=== PATIENT | male | born 1940 | race Caucasian/White ===

== ENCOUNTER 2023-12-27 14:13 | Inpatient (IN) ==
[2023-12-27] MEDS: FAMOTIDINE/PF 20 MG/2 ML VIAL IV ONE (14:30)
[2023-12-27] MEDS: methylPREDNISolone SOD SUCC 125 MG/2 ML VIAL IV ONE (14:30)
[2023-12-27] MEDS: IPRATROPIUM/ALBUTEROL 3 ML AMPUL.NEB NEB ONE ×2 (14:36→14:37)
[2023-12-27 14:42] LABS: Basophils # (Auto) 0.03 K/mcL (0.00-0.30); Basophils % (Auto) 0.3 % (0.0-2.0); Eosinophils # (Auto) 0.56 K/mcL (0.00-0.70); Hematocrit 41.3 % (40.1-51.0); Hemoglobin 13.4 g/dL (13.7-17.5); Lymphocytes # (Auto) 3.43 K/mcL (1.50-4.80); Lymphocytes % (Auto) 30.4 % (15.5-49.0); Mean Cell Volume 95.4 fL (80.0-100.0); Mean Corpuscular HGB Conc 32.4 g/dL (31.0-36.0); Mean Platelet Volume 9.2 fL (8.8-12.5); Monocytes # (Auto) 0.65 K/mcL (0.10-0.90); Monocytes % (Auto) 5.8 % (1.0-12.0); Neutrophils % (Auto) 58.3 % (38.0-78.0); Platelet Count 234 K/mcL (140-440); RBC 4.33 M/mcL (4.63-6.08); Red Cell Distribution Width 14.3 % (11.5-14.5); WBC 11.3 K/mcL (4.5-11.0)
[2023-12-27] MEDS: TRANEXAMIC ACID 1,000 MG/10 ML VIAL IV ONE (14:53)
[2023-12-27 15:04] LABS: ALT/SGPT 10 U/L (<40); AST/SGOT 31 U/L (<40); Albumin 4.4 gm/dL (3.2-5.2); Albumin/Globulin Ratio 1.6 (1.0-2.3); Alkaline Phosphatase 74 U/L (39-117); Bilirubin,Total 0.4 mg/dL (0.1-1.0); Blood Urea Nitrogen 20 mg/dL (8-23); Calcium 8.8 mg/dL (8.6-10.4); Carbon Dioxide 24 mmol/L (22-30); Chloride 104 mmol/L (96-108); Globulin 2.8 gm/dL (2.2-3.7); Glomerular Filtration Rate 86; Glucose 89 mg/dL (70-105); Sodium 138 mmol/L (133-145)
[2023-12-27] MEDS: RACEPINEPHRINE 0.5 ML AMPUL.NEB ONE (15:10)
[2023-12-27] MEDS: EPINEPHrine 1 MG/ML VIAL IM ONE (15:55)
[2023-12-27] MEDS: MIDAZOLAM 2 MG/2 ML VIAL IV ONE (15:56)
[2023-12-27] MEDS: KETAMINE 10 MG/ML ML IV ONE (15:56)
[2023-12-27] MEDS: 0.9 % SODIUM CHLORIDE 250 ML IV SCH ×2 (15:57→17:30)
[2023-12-27] MEDS ORDERED: KETAMINE 50 MG/ML Syringe IV ONE (16:03)
[2023-12-27] MEDS ORDERED: PROPOFOL 200 MG/20 ML VIAL IV ONE (16:03)
[2023-12-27] MEDS ORDERED: MIDAZOLAM 2 MG/2 ML VIAL ONE (16:04)
[2023-12-27] MEDS: PROPOFOL 1,000 MG in PREMIX 1 BAG IV SCH (16:46)
[2023-12-27] MEDS ORDERED: DEXTROSE 50% 50 ML SYRINGE IV PRN (16:47)
[2023-12-27] MEDS: DEXTROSE 5%-NS 1,000 ML IV SCH (16:49)
[2023-12-27] MEDS: fentaNYL 2,500 MCG in 0.9 % SODIUM CHLORIDE 200 ML IV SCH ×2 (17:24→19:58)
[2023-12-27] MEDS: PROPOFOL 100 ML IV ONE (17:24)
[2023-12-27] MEDS: NOREPINEPHRINE 250 ML IV SCH (17:31)
[2023-12-27] MEDS ORDERED: diphenhydrAMINE 50 MG/ML VIAL IV ONE (17:52)
[2023-12-27] MEDS: NICOTINE 21 MG PATCH TOPICAL SCH (18:00)
[2023-12-27] MEDS: SCOPOLAMINE 1 PATCH PATCH TOPICAL SCH (18:02)
[2023-12-27] MEDS: IPRATROPIUM/ALBUTEROL 3 ML AMPUL.NEB NEB SCH (19:15)
[2023-12-27] MEDS: methylPREDNISolone SOD SUCC 125 MG/2 ML VIAL IV SCH (19:34)
[2023-12-27] MEDS: INSULIN LISPRO 1 UNIT/0.01 ML UNIT SQ SCH (19:38)
[2023-12-27] MEDS: NOREPINEPHRINE BITARTRATE 8 MG in 0.9 % SODIUM CHLORIDE 242 ML IV SCH (19:58)
[2023-12-27] MEDS: FAMOTIDINE/PF 20 MG/2 ML VIAL IV SCH (20:07)
[2023-12-27] MEDS: CHLORHEXIDINE GLUCONATE 15 ML UDC SWABMOUTH SCH (20:07)
[2023-12-27] MEDS: 0.9 % SODIUM CHLORIDE 10 ML SYRINGE IV SCH (20:08)
[2023-12-28] MEDS: ONDANSETRON 4 MG/2 ML VIAL IV PRN (00:19)
[2023-12-28] MEDS: PROPOFOL 100 ML IV ONE ×3 (00:32→23:22)
[2023-12-28 07:14] LABS: Basophils # (Auto) 0.01 K/mcL (0.00-0.30); Basophils % (Auto) 0.2 % (0.0-2.0); Eosinophils # (Auto) 0 K/mcL (0.00-0.70); Eosinophils % (Auto) 0 % (0.0-7.0); Hematocrit 34.4 % (40.1-51.0); Hemoglobin 10.7 g/dL (13.7-17.5); Lymphocytes # (Auto) 0.95 K/mcL (1.50-4.80); Lymphocytes % (Auto) 16.6 % (15.5-49.0); Mean Cell Volume 100.9 fL (80.0-100.0); Mean Corpuscular HGB Conc 31.1 g/dL (31.0-36.0); Mean Platelet Volume 9.6 fL (8.8-12.5); Monocytes # (Auto) 0.03 K/mcL (0.10-0.90); Monocytes % (Auto) 0.5 % (1.0-12.0); Neutrophils % (Auto) 82.5 % (38.0-78.0); Platelet Count 189 K/mcL (140-440); RBC 3.41 M/mcL (4.63-6.08); Red Cell Distribution Width 14.2 % (11.5-14.5); WBC 5.7 K/mcL (4.5-11.0)
[2023-12-28 07:38] LABS: ALT/SGPT 7 U/L (<40); AST/SGOT 15 U/L (<40); Albumin 3.7 gm/dL (3.2-5.2); Albumin/Globulin Ratio 1.6 (1.0-2.3); Alkaline Phosphatase 60 U/L (39-117); Bilirubin,Total 0.2 mg/dL (0.1-1.0); Blood Urea Nitrogen 19 mg/dL (8-23); Calcium 8.4 mg/dL (8.6-10.4); Carbon Dioxide 17 mmol/L (22-30); Chloride 103 mmol/L (96-108); Globulin 2.3 gm/dL (2.2-3.7); Glomerular Filtration Rate 86; Glucose 188 mg/dL (70-105); Phosphorous 3.2 mg/dL (2.5-4.5); Potassium 3.8 mmol/L (3.3-5.1); Sodium 135 mmol/L (133-145)
[2023-12-28 09:13] LABS: ABG Methemoglobin 0.4 % (0.4-1.5); Total Hemoglobin 12.4 gm/Dl (13.5-16.5); VBG Base Excess -9 (-2-3); VBG HCO3 16.7 mmol/L (24.0-28.0); VBG Oxygen Saturation 87.1 % (40.0-70.0); VBG PCO2 34.9 mmHg (41.0-51.0); VBG PO2 62.1 mmHg (25.0-40.0); VBG Total CO2 17.8 mmol/L (25.0-29.0)
[2023-12-28] MEDS: ENOXAPARIN 40 MG/0.4 ML SYRINGE SQ SCH (09:18)
[2023-12-28] MEDS: diphenhydrAMINE 50 MG/ML VIAL IV PRN (09:19)
[2023-12-29] MEDS: PROPOFOL 100 ML IV ONE (04:08)
[2023-12-29 06:35] LABS: ALT/SGPT 6 U/L (<40); AST/SGOT 12 U/L (<40); Albumin 3.2 gm/dL (3.2-5.2); Albumin/Globulin Ratio 1.4 (1.0-2.3); Alkaline Phosphatase 53 U/L (39-117); Bilirubin,Total < 0.2 mg/dL (0.1-1.0); Blood Urea Nitrogen 20 mg/dL (8-23); Calcium 8.2 mg/dL (8.6-10.4); Carbon Dioxide 19 mmol/L (22-30); Chloride 109 mmol/L (96-108); Globulin 2.3 gm/dL (2.2-3.7); Glomerular Filtration Rate 91; Glucose 176 mg/dL (70-105); Potassium 3.8 mmol/L (3.3-5.1); Sodium 139 mmol/L (133-145)
[2023-12-29 06:36] LABS: Phosphorous 3.1 mg/dL (2.5-4.5)
[2023-12-29 06:39] LABS: Basophils # (Auto) 0 K/mcL (0.00-0.30); Basophils % (Auto) 0 % (0.0-2.0); Eosinophils # (Auto) 0 K/mcL (0.00-0.70); Eosinophils % (Auto) 0 % (0.0-7.0); Hematocrit 31.5 % (40.1-51.0); Hemoglobin 9.8 g/dL (13.7-17.5); Lymphocytes % (Auto) 6.7 % (15.5-49.0); Mean Cell Volume 99.7 fL (80.0-100.0); Mean Corpuscular HGB Conc 31.1 g/dL (31.0-36.0); Mean Platelet Volume 9.6 fL (8.8-12.5); Monocytes # (Auto) 0.38 K/mcL (0.10-0.90); Monocytes % (Auto) 3.2 % (1.0-12.0); Neutrophils % (Auto) 89.8 % (38.0-78.0); Platelet Count 203 K/mcL (140-440); RBC 3.16 M/mcL (4.63-6.08); Red Cell Distribution Width 14.8 % (11.5-14.5); WBC 11.9 K/mcL (4.5-11.0)
[2023-12-29] MEDS ORDERED: fentaNYL 2,500 MCG in 0.9 % SODIUM CHLORIDE 200 ML IV PRN (10:12)
[2023-12-29] MEDS: HYDROcodone/APAP 10/325MG TABLET PO PRN (11:29)
[2023-12-29] MEDS ORDERED: PREGABALIN 100 MG CAPSULE PO SCH (15:00)
[2023-12-29] MEDS: PREGABALIN 150 MG CAPSULE PO SCH (15:48)
[2023-12-29] MEDS: amLODIPine 5 MG TABLET PO SCH (20:50)
[2023-12-29] MEDS: METHOCARBAMOL 750 MG TABLET PO PRN (20:51)
[2023-12-29] MEDS: ATORVASTATIN 40 MG TABLET PO SCH (20:51)
[2023-12-30 06:22] LABS: Basophils # (Auto) 0 K/mcL (0.00-0.30); Basophils % (Auto) 0 % (0.0-2.0); Eosinophils # (Auto) 0 K/mcL (0.00-0.70); Eosinophils % (Auto) 0 % (0.0-7.0); Hematocrit 32.1 % (40.1-51.0); Hemoglobin 10.1 g/dL (13.7-17.5); Lymphocytes # (Auto) 0.64 K/mcL (1.50-4.80); Mean Cell Volume 99.7 fL (80.0-100.0); Mean Corpuscular HGB Conc 31.5 g/dL (31.0-36.0); Mean Platelet Volume 9.5 fL (8.8-12.5); Monocytes # (Auto) 0.59 K/mcL (0.10-0.90); Monocytes % (Auto) 3.7 % (1.0-12.0); Neutrophils % (Auto) 91.6 % (38.0-78.0); Platelet Count 200 K/mcL (140-440); RBC 3.22 M/mcL (4.63-6.08); Red Cell Distribution Width 15.5 % (11.5-14.5); WBC 16.1 K/mcL (4.5-11.0)
[2023-12-30 06:28] LABS: Phosphorous 2.6 mg/dL (2.5-4.5)
[2023-12-30 06:44] LABS: ALT/SGPT 7 U/L (<40); AST/SGOT 15 U/L (<40); Albumin 3.3 gm/dL (3.2-5.2); Albumin/Globulin Ratio 1.4 (1.0-2.3); Alkaline Phosphatase 64 U/L (39-117); Bilirubin,Total < 0.2 mg/dL (0.1-1.0); Blood Urea Nitrogen 28 mg/dL (8-23); Calcium 8.7 mg/dL (8.6-10.4); Carbon Dioxide 21 mmol/L (22-30); Chloride 110 mmol/L (96-108); Globulin 2.3 gm/dL (2.2-3.7); Glomerular Filtration Rate 86; Glucose 126 mg/dL (70-105); Potassium 4.1 mmol/L (3.3-5.1); Sodium 142 mmol/L (133-145)
[2023-12-30] MEDS ORDERED: VIT C E ZINC OX COPP LUT ZEAX PO SCH (09:00)
[2023-12-30] MEDS ORDERED: ALPHA LIPOIC ACID 200 MG PO SCH (09:00)
[2023-12-30] MEDS: ASPIRIN 81 MG TAB.CHEW PO SCH (10:43)
[2023-12-30] MEDS: FLU VACC TS2024-25(65YR UP)/PF 180 MCG/0.5 ML SYRINGE IM ONE (10:44)
== END 2023-12-30 13:05 | disposition home health service (06) | DRG 916 ==
LOC: ED 14:13 → SUR 16:00 → ICU 16:37
PROVIDERS: ADMIT Internal Medicine; ATTEND Internal Medicine

== ENCOUNTER 2024-01-22 20:48 | Observation (INO) ==
[2024-01-22 21:32] LABS: POC Calcium, Ionized 1.05 (1.16-1.32); POC Creatinine 0.9 (0.6-1.2); POC Potassium 2.6 (3.3-5.1)
[2024-01-22] MEDS: POTASSIUM CHLORIDE 20 MEQ TABLET PO ONE (22:04)
[2024-01-22] MEDS: POTASSIUM CHLORIDE 20 MEQ in DEXTROSE 5% IN WATER 250 ML IV ONE (22:04)
[2024-01-23] MEDS: MAGNESIUM SULFATE 1 GM/100 ML BAG IV ONE (00:07)
[2024-01-23] MEDS ORDERED: NICOTINE POLACRILEX 2 MG GUM CHEW/PARK PRN (00:24)
[2024-01-23] MEDS ORDERED: ONDANSETRON 4 MG/2 ML VIAL IV PRN (00:24)
[2024-01-23] MEDS: CALCIUM GLUCONATE 4.65 MEQ/10 ML VIAL ONE (01:03)
[2024-01-23] MEDS: CALCIUM GLUCONATE 9.3 MEQ in DEXTROSE 5% IN WATER 50 ML IV ONE (01:10)
[2024-01-23] MEDS: POTASSIUM CHLORIDE 10 MEQ/100 ML BAG IV ONE (01:12)
[2024-01-23] MEDS: ACETAMINOPHEN 325 MG TABLET PO PRN (01:12)
[2024-01-23] MEDS: POTASSIUM CHLORIDE 20 MEQ PACKET PO ONE (01:16)
[2024-01-23] MEDS: NICOTINE 21 MG PATCH TOPICAL SCH (01:17)
[2024-01-23] MEDS: ACETAMINOPHEN 325 MG TABLET PO ONE (01:21)
[2024-01-23] MEDS: NICOTINE 21 MG PATCH ONE (01:21)
[2024-01-23] MEDS: POTASSIUM CHLORIDE 20 MEQ PACKET ONE (01:21)
[2024-01-23] MEDS: 0.9 % SODIUM CHLORIDE 10 ML SYRINGE IV SCH (06:00)
[2024-01-23 06:37] LABS: Basophils # (Auto) 0.05 K/mcL (0.00-0.30); Basophils % (Auto) 0.6 % (0.0-2.0); Eosinophils % (Auto) 4.5 % (0.0-7.0); Hematocrit 32.6 % (40.1-51.0); Hemoglobin 10.9 g/dL (13.7-17.5); Lymphocytes # (Auto) 2.78 K/mcL (1.50-4.80); Lymphocytes % (Auto) 31.6 % (15.5-49.0); Mean Cell Volume 94.2 fL (80.0-100.0); Mean Corpuscular HGB Conc 33.4 g/dL (31.0-36.0); Mean Platelet Volume 8.9 fL (8.8-12.5); Monocytes # (Auto) 0.58 K/mcL (0.10-0.90); Monocytes % (Auto) 6.6 % (1.0-12.0); Neutrophils % (Auto) 56.4 % (38.0-78.0); Platelet Count 254 K/mcL (140-440); RBC 3.46 M/mcL (4.63-6.08); Red Cell Distribution Width 13.9 % (11.5-14.5); WBC 8.8 K/mcL (4.5-11.0)
[2024-01-23 07:09] LABS: ALT/SGPT 6 U/L (<40); AST/SGOT 15 U/L (<40); Albumin 3.5 gm/dL (3.2-5.2); Albumin/Globulin Ratio 1.6 (1.0-2.3); Alkaline Phosphatase 65 U/L (39-117); Bilirubin,Total 0.3 mg/dL (0.1-1.0); Blood Urea Nitrogen 17 mg/dL (8-23); Calcium 9.2 mg/dL (8.6-10.4); Carbon Dioxide 26 mmol/L (22-30); Chloride 98 mmol/L (96-108); Globulin 2.2 gm/dL (2.2-3.7); Glomerular Filtration Rate 91; Glucose 94 mg/dL (70-105); Potassium 3.8 mmol/L (3.3-5.1); Sodium 134 mmol/L (133-145)
[2024-01-23] MEDS ORDERED: METHOCARBAMOL 750 MG TABLET PO PRN (07:58)
[2024-01-23] MEDS: PREGABALIN 150 MG CAPSULE PO SCH (08:44)
[2024-01-23] MEDS: amLODIPine 10 MG TABLET PO SCH (08:44)
[2024-01-23] MEDS: HYDROcodone/APAP 10/325MG TABLET PO PRN (08:45)
[2024-01-23] MEDS: ASPIRIN 81 MG TAB.CHEW PO SCH (08:45)
[2024-01-23] MEDS: HEPARIN 5,000 UNIT/ML VIAL SQ SCH (08:47)
[2024-01-23] MEDS ORDERED: ALPHA LIPOIC ACID 200 MG PO SCH (09:00)
[2024-01-23] MEDS ORDERED: VIT C E ZINC OX COPP LUT ZEAX PO SCH (09:00)
[2024-01-23 12:28] LABS: Potassium 3.6 mmol/L (3.3-5.1)
[2024-01-23] MEDS: POTASSIUM CHLORIDE 20 MEQ TABLET PO ONE (13:00)
[2024-01-23] MEDS ORDERED: POTASSIUM CHLORIDE 20 MEQ TABLET PO ONE (13:05)
[2024-01-23] MEDS ORDERED: ATORVASTATIN 40 MG TABLET PO SCH (21:00)
== END 2024-01-23 13:25 | disposition home or self-care (01) ==
LOC: MEDSUR 20:48 → ED 20:48 → MEDSUR 01-23 00:35
PROVIDERS: ADMIT Student in an Organized Health Care Education/Training Program; ATTEND Student in an Organized Health Care Education/Training Program